=== PATIENT | male | born 1945 | race Hispanic/Latino ===

== ENCOUNTER → 2017-05-08 | Outpatient (CLI) | payer MEDICARE ==
[~2017-05-08] MED LIST: ALBUMIN (HUMAN) 25% 200 ML IV SCH; FURO40TA5 PO; FURO80TA3 PO; LEVO150T6 PO; METO2.5T2 PO; PROP10TA10 PO; SPIR25TA4 PO; TEMA15CA PO
[2017-05-08 10:22] LABS: INR 1.05 (0.85-1.15); PARTIAL THROMBOPLASTIN TIME 29.7 SEC (26.3-35.5)
== END | disposition home or self-care (01) ==
LOC: OIH 09:11
PROVIDERS: ATTEND Internal Medicine
DX: K74.69 Other cirrhosis of liver (principal); D73.2 Chronic congestive splenomegaly; J98.11 Atelectasis; R18.8 Other ascites
CPT/HCPCS: 36415; 49083; 74150; 85610; 85730; P9046

== ENCOUNTER → 2017-05-23 | Outpatient (CLI) | payer MEDICARE ==
[2017-05-23 10:06] LABS: INR 1.06 (0.85-1.15); PARTIAL THROMBOPLASTIN TIME 30.2 SEC (26.3-35.5); PROTHROMBIN TIME 11.1 SEC (9.6-11.6)
== END | disposition home or self-care (01) ==
LOC: RAH 09:23
PROVIDERS: ATTEND Internal Medicine
DX: R18.8 Other ascites (principal); Z79.01 Long term (current) use of anticoagulants
CPT/HCPCS: 36415; 49083; 85610; 85730; P9046

== ENCOUNTER → 2017-06-10 | Outpatient (CLI) | payer MEDICARE ==
[~2017-06-10] MED LIST changes: +ALBUMIN (HUMAN) 25% 200 ML IV ONE; -ALBUMIN (HUMAN) 25% 200 ML IV SCH
[2017-06-10 11:21] LABS: INR 1.08 (0.85-1.15); PARTIAL THROMBOPLASTIN TIME 29.7 SEC (26.3-35.5); PROTHROMBIN TIME 11.3 SEC (9.6-11.6)
== END | disposition home or self-care (01) ==
LOC: RAH 11:06
PROVIDERS: ATTEND Internal Medicine
DX: R18.8 Other ascites (principal); K74.60 Unspecified cirrhosis of liver
CPT/HCPCS: 36415; 49083; 85610; 85730; P9046

== ENCOUNTER → 2017-06-27 | Outpatient (CLI) | payer MEDICARE ==
[~2017-06-27] MED LIST changes: -ALBUMIN (HUMAN) 25% 200 ML IV ONE; +ALBUMIN (HUMAN) 25% 200 ML IV SCH
[2017-06-27 08:31] LABS: INR 1.08 (0.85-1.15); PARTIAL THROMBOPLASTIN TIME 30.5 SEC (26.3-35.5); PROTHROMBIN TIME 11.3 SEC (9.6-11.6)
== END | disposition home or self-care (01) ==
LOC: RAH 07:18
PROVIDERS: ATTEND Internal Medicine
DX: R18.8 Other ascites (principal); K74.60 Unspecified cirrhosis of liver
CPT/HCPCS: 36415; 49083; 85610; 85730; P9046

== ENCOUNTER → 2017-07-16 | Outpatient (CLI) | payer MEDICARE ==
[~2017-07-16] MED LIST changes: +ALBUMIN (HUMAN) 25% 200 ML IV ONE; -ALBUMIN (HUMAN) 25% 200 ML IV SCH
[2017-07-16 15:53] LABS: INR 1.1 (0.85-1.15); PARTIAL THROMBOPLASTIN TIME 29.4 SEC (26.3-35.5); PROTHROMBIN TIME 11.5 SEC (9.6-11.6)
[2017-07-16 21:28] LABS: APPEARANCE BODY FLUID SLIGHTLY CLOUDY (CLEAR); BODY FLUID WBC 75 /cu. mm.; COLOR,BODY FLUID YELLOW (LT YELLOW); SPECIMENTYPE,BODY FLUID ASCITES; TOTAL VOLUME,BODY FLUID 100 mL
[2017-07-16 21:29] LABS: BODY FLUID RBC 691 /cu. mm.
[2017-07-16 21:39] LABS: BF EOSINOPHIL 1 %; BF LYMPHOCYTE 71 %; BF MONOCYTE 10 %
== END | disposition home or self-care (01) ==
LOC: RAH 14:55
PROVIDERS: ATTEND Internal Medicine
DX: K74.69 Other cirrhosis of liver (principal); R18.8 Other ascites
CPT/HCPCS: 36415; 49083; 85610; 85730; 87071; 87205; 89051; P9046

== ENCOUNTER → 2017-07-23 | Outpatient (CLI) | payer MEDICARE ==
[~2017-07-23] MED LIST changes: -ALBUMIN (HUMAN) 25% 200 ML IV ONE
[2017-07-23 11:45] LABS: INR 1.07 (0.85-1.15); PARTIAL THROMBOPLASTIN TIME 29.4 SEC (26.3-35.5); PROTHROMBIN TIME 11.2 SEC (9.6-11.6)
== END | disposition home or self-care (01) ==
LOC: RAH 10:00
PROVIDERS: ATTEND Internal Medicine
DX: K76.89 Other specified diseases of liver (principal); R18.8 Other ascites
CPT/HCPCS: 36415; 85610; 85730

== ENCOUNTER → 2017-07-25 | Outpatient (CLI) | payer MEDICARE ==
[~2017-07-25] MED LIST changes: +IOPAMIDOL-370 75 ML VIAL IV ONE
[2017-07-25 10:10] LABS: EOSINOPHILS % (AUTO) 5.9 % (0.0-8.0); LYMPHOCYTES % (AUTO) 12.3 % (21.0-51.0); MEAN CORPUSCULAR HEMOGLOBIN 27.1 pg (27.0-33.0); MEAN CORPUSCULAR HGB CONC 33.1 g/dL (32.0-36.0); MEAN CORPUSCULAR VOLUME 81.8 fL (79-99); MONOCYTES % (AUTO) 10.8 % (3.0-13.0); NUCLEATED RED BLOOD CELLS 0.2 % (0.0-0.19); PLATELET COUNT (AUTO) 76 K/uL (130-400); RED BLOOD CELL COUNT(AUTO) 4.52 MIL/uL (4.50-6.20); RED CELL DISTRIBUTION WIDTH 16.1 % (11.0-15.5); WHITE BLOOD COUNT (AUTO) 3.3 K/uL (4.8-10.8)
[2017-07-25 10:25] LABS: ALBUMIN 2.3 g/dL (3.5-5.0); CREATININE 1.5 mg/dL (0.5-1.5); POTASSIUM 4.6 mmol/L (3.5-5.1); TOTAL PROTEIN, SERUM 6.1 g/dL (6.0-8.3)
== END | disposition home or self-care (01) ==
LOC: RAH 09:36
PROVIDERS: ATTEND Internal Medicine
DX: K74.69 Other cirrhosis of liver (principal); K40.90 Unilateral inguinal hernia, without obstruction or gangrene, not specified as recurrent; I70.90 Unspecified atherosclerosis; J98.11 Atelectasis; M47.895 Other spondylosis, thoracolumbar region; R18.8 Other ascites
CPT/HCPCS: 36415; 74178; 80053; 85025; Q9967

== ENCOUNTER 2017-07-31 05:11 | Observation (INO) | payer MEDICARE ==
[~2017-07-31] VITALS: Ht 180.3 cm; Wt 87.0 kg
[2017-07-31] VITALS (30 sets, daily range): BP systolic 81–119; BP diastolic 51–78
[~2017-07-31 05:11] MED LIST changes: -FURO80TA3 PO; -IOPAMIDOL-370 75 ML VIAL IV ONE; -PROP10TA10 PO; -SPIR25TA4 PO; -TEMA15CA PO
[2017-07-31 06:21] LABS: HEMATOCRIT 36.2 % (42-54); LYMPHOCYTES % (AUTO) 10.8 % (21.0-51.0); MEAN CORPUSCULAR HEMOGLOBIN 27.1 pg (27.0-33.0); MEAN CORPUSCULAR HGB CONC 33.3 g/dL (32.0-36.0); MEAN CORPUSCULAR VOLUME 81.4 fL (79-99); MONOCYTES % (AUTO) 10.7 % (3.0-13.0); NEUTROPHILS % (AUTO) 70.5 % (40.0-77.0); PLATELET COUNT (AUTO) 73 K/uL (130-400); RED BLOOD CELL COUNT(AUTO) 4.44 MIL/uL (4.50-6.20); RED CELL DISTRIBUTION WIDTH 16.5 % (11.0-15.5); WHITE BLOOD COUNT (AUTO) 3.2 K/uL (4.8-10.8)
[2017-07-31] MEDS ORDERED: LACTATED RINGERS 1000ML 1,000 ML IV ONE (06:48)
[2017-07-31] MEDS ORDERED: PROP10TA10 PO (07:24)
[2017-07-31] MEDS ORDERED: SPIR25TA6 PO (07:24)
[2017-07-31] MEDS ORDERED: TEMA15CA PO (07:24)
[2017-07-31] MEDS ORDERED: FURO80TA3 PO (07:24)
[2017-07-31] MEDS ORDERED: GLYCOPYRROLATE 0.2 MG/ML 5 ML VIAL ONE ×2 (07:38→12:55)
[2017-07-31] MEDS ORDERED: LIDOCAINE PF 2% 5ML ABBOJECT ONE (07:38)
[2017-07-31] MEDS ORDERED: DEXAMETHASONE SOD PHOSPHATE 10MG/ML 1ML VIAL ONE (07:38)
[2017-07-31] MEDS ORDERED: PROPOFOL 10 MG/ML 20ML VIAL IV ONE (07:39)
[2017-07-31] MEDS ORDERED: MIDAZOLAM HCL 1 MG/ML 2ML VIAL ONE (07:39)
[2017-07-31] MEDS ORDERED: ISOVUE-300 100 ML VIAL IV ONE ×2 (07:40→08:34)
[2017-07-31] MEDS ORDERED: LIDOCAINE HCL 1% MDV 50ML VIAL ONE (07:40)
[2017-07-31] MEDS ORDERED: FENTANYL CITRATE PF 50 MCG/1 ML 5ML AMP IV ONE (07:42)
[2017-07-31] MEDS ORDERED: SODIUM CHLORIDE 0.9% 1000ML 1,000 ML IV ONE (15:06)
[2017-07-31] MEDS ORDERED: SODIUM CHLORIDE 0.9% 1000ML 1,000 ML IV SCH (20:15)
[2017-07-31] MEDS ORDERED: TEMAZEPAM 15 MG CAPSULE PO SCH (21:00)
[2017-07-31] MEDS: PROPRANOLOL HCL 10 MG TAB PO SCH (21:00)
[2017-08-01 03:00] VITALS: BP 92/63
[2017-08-01 08:00] VITALS: BP 107/64
[2017-08-01] MEDS ORDERED: LEVOTHYROXINE 150 MCG TABLET PO SCH (09:00)
[2017-08-01] MEDS: PROPRANOLOL HCL 10 MG TAB PO SCH (09:06)
[2017-08-01 11:00] VITALS: BP 102/67
== END 2017-08-01 14:06 | disposition home or self-care (01) ==
LOC: DAHIP 05:11 → INTOOBSV 05:11 → EDSTATUS 11:30 → 3CH 13:46
PROVIDERS: ADMIT Internal Medicine; ATTEND Internal Medicine
DX: K74.60 Unspecified cirrhosis of liver (principal); K76.6 Portal hypertension; R18.8 Other ascites; I12.9 Hypertensive chronic kidney disease with stage 1 through stage 4 chronic kidney disease, or unspecified chronic kidney disease; N18.3 Chronic kidney disease, stage 3 (moderate); B18.2 Chronic viral hepatitis C; D64.89 Other specified anemias; E11.22 Type 2 diabetes mellitus with diabetic chronic kidney disease; E78.2 Mixed hyperlipidemia; G47.09 Other insomnia
CPT/HCPCS: 36415; 37182; 49083 ×2; 85025; C1769 ×2; C1894 ×2; G0378 ×34; J1100; J1644 ×2; J2001; J2250; J2704; J3010; J3490 ×2; J7030; J7120; Q9967 ×2

== ENCOUNTER 2017-08-04 07:50 | Day surgery (SDC) | payer MEDICARE ==
[2017-08-01 12:00] VITALS: BP 102/67
[2017-08-04] VITALS (8 sets, daily range): BP systolic 99–125; BP diastolic 59–70
[~2017-08-04] VITALS: Ht 180.3 cm; Wt 87.0 kg
[~2017-08-04 07:50] MED LIST changes: -FURO40TA5 PO; +FURO80TA3 PO; -METO2.5T2 PO; +PROP10TA10 PO; +SPIR25TA4 PO; +TEMA15CA PO
[2017-08-04] MEDS ORDERED: ISOVUE-300 100 ML VIAL IV ONE (09:17)
[2017-08-04] MEDS ORDERED: LIDOCAINE HCL 1% MDV 50ML VIAL ONE (09:18)
[2017-08-04] MEDS ORDERED: MEPERIDINE-PF 25 MG/ML SYG ONE (10:05)
== END 2017-08-04 13:45 | disposition home or self-care (01) ==
LOC: DAH 07:50
PROVIDERS: ATTEND Internal Medicine
DX: K74.69 Other cirrhosis of liver (principal); R18.8 Other ascites; B19.20 Unspecified viral hepatitis C without hepatic coma; E03.8 Other specified hypothyroidism; M10.9 Gout, unspecified; I12.9 Hypertensive chronic kidney disease with stage 1 through stage 4 chronic kidney disease, or unspecified chronic kidney disease; N18.3 Chronic kidney disease, stage 3 (moderate); E88.09 Other disorders of plasma-protein metabolism, not elsewhere classified; D64.89 Other specified anemias
CPT/HCPCS: 10030; 49418; A4606; A7048; J1644; J2175; J3490; Q9967

== ENCOUNTER 2017-09-15 18:46 | Inpatient (IN) | payer MEDICARE ==
[~2017-09-15] VITALS: Ht 180.3 cm; Wt 44.3 kg
[~2017-09-15 18:46] MED LIST changes: -SPIR25TA4 PO; +SPIR25TA6 PO
[2017-09-15] MEDS ORDERED: SODIUM CHLORIDE 0.9% 1000ML 1,000 ML IV ONE (19:23)
[2017-09-15] MEDS ORDERED: CEFTRIAXONE SODIUM 2 GM VIAL ONE (19:24)
[2017-09-15 19:25] LABS: BASOPHILS % (AUTO) 0.2 % (0.0-5.0); EOSINOPHILS % (AUTO) 0.1 % (0.0-8.0); LYMPHOCYTES % (AUTO) 2.4 % (21.0-51.0); MEAN CORPUSCULAR HEMOGLOBIN 26.3 pg (27.0-33.0); MEAN CORPUSCULAR HGB CONC 32.9 g/dL (32.0-36.0); MEAN CORPUSCULAR VOLUME 80.1 fL (79-99); MONOCYTES % (AUTO) 7.2 % (3.0-13.0); NEUTROPHILS % (AUTO) 90.1 % (40.0-77.0); PLATELET COUNT (AUTO) 186 K/uL (130-400); RED BLOOD CELL COUNT(AUTO) 3.25 MIL/uL (4.50-6.20); RED CELL DISTRIBUTION WIDTH 16.5 % (11.0-15.5)
[2017-09-15] MEDS ORDERED: ALBUMIN (HUMAN) 25% 100 ML IV ONE (19:25)
[2017-09-15 19:36] LABS: INR 1.27 (0.85-1.15); PARTIAL THROMBOPLASTIN TIME 34.3 SEC (26.3-35.5); PROTHROMBIN TIME 13.3 SEC (9.6-11.6)
[2017-09-15 19:47] LABS: ALANINE AMINOTRANSFERASE 24 U/L (12-78); ALBUMIN 1.1 g/dL (3.5-5.0); ALCOHOL, BLOOD < 3 mg/dL (0-10); ASPARTATE AMINOTRANSFERASE 29 U/L (10-37); BILIRUBIN,TOTAL 0.6 mg/dL (0.2-1.0); CARBON DIOXIDE 22 mmol/L (21-32); CHLORIDE 99 mmol/L (101-111); CREATINE KINASE MB < 0.5 ng/mL (0.5-3.6); CREATINE KINASE, TOTAL 10 U/L (21-232); CREATININE 3.4 mg/dL (0.5-1.5); GLOMERULAR FILTR. RATE CALC 19 mL/min (>60); LIPASE 337 U/L (114-286); POTASSIUM 5.7 mmol/L (3.5-5.1); SODIUM SERUM 129 mmol/L (136-145); TOTAL PROTEIN, SERUM 4.8 g/dL (6.0-8.3)
[2017-09-15 19:49] LABS: UREA NITROGEN, BLOOD 121 mg/dL (7-18)
[2017-09-15 19:52] LABS: GLUCOSE,RANDOM 158 mg/dL (70-105)
[2017-09-15] MEDS ORDERED: SODIUM CHLORIDE 0.9% 100 ML IV ONE (20:30)
[2017-09-15] MEDS ORDERED: OCTREOTIDE ACETATE 1,000 MCG in SODIUM CHLORIDE 0.9% 95 ML IV SCH (20:45)
[2017-09-15] MEDS ORDERED: PANTOPRAZOLE SODIUM 80 MG in NS 100ML IVP SCH (20:45)
[2017-09-15] MEDS ORDERED: SODIUM CHLORIDE 0.9% IV ONE (21:00)
[2017-09-15] MEDS ORDERED: OCTREOTIDE ACETATE IV ONE (21:00)
[2017-09-15 23:30] VITALS: BP 96/54
[2017-09-16] VITALS (22 sets, daily range): BP systolic 79–152; BP diastolic 42–66
[2017-09-16 04:16] LABS: HEMATOCRIT 20.9 % (42-54)
[2017-09-16] MEDS ORDERED: SODIUM CHLORIDE 0.9% 1000ML 1,000 ML IV SCH (05:00)
[2017-09-16] MEDS ORDERED: CEFTRIAXONE 1GM/D5W 50ML 50 ML IV SCH (07:15)
[2017-09-16] MEDS ORDERED: SODIUM CHLORIDE 0.9% 500ML 500 ML IV ONE (07:28)
[2017-09-16] MEDS ORDERED: CEFTRIAXONE SODIUM 1 GM IVP SCH (07:45)
[2017-09-16] MEDS ORDERED: PROPOFOL 10 MG/ML 20ML VIAL IV ONE (12:38)
[2017-09-16] MEDS ORDERED: DEXTROSE 50%-WATER 50 ML DISP.SYRIN IV ONE (13:26)
[2017-09-16] MEDS ORDERED: INSULIN HUMULIN R 100 UNIT/ML 3ML ONE (13:27)
[2017-09-16] MEDS ORDERED: CALCIUM GLUCONATE 1 GM in SODIUM CHLORIDE 0.9% 50 ML IV SCH (13:30)
[2017-09-16 14:11] LABS: HEMATOCRIT 25.4 % (42-54)
[2017-09-16] MEDS ORDERED: DEXTROSE 50%-WATER 25 GM/50 ML VIAL IV ONE (14:30)
[2017-09-16] MEDS ORDERED: INSULIN HUMULIN R 100 UNIT/ML 3ML IV ONE (14:30)
[2017-09-16] MEDS: SODIUM CHLORIDE 0.9% 1000ML 1,000 ML IV SCH (18:30)
[2017-09-16 18:56] LABS: HEMATOCRIT 28.3 % (42-54)
[2017-09-16 23:13] LABS: APPEARANCE,URINE Clear (CLEAR); BILIRUBIN,URINE Negative (NEGATIVE); COLOR,URINE Yellow (YELLOW); GLUCOSE, URINE (UA) Negative (NEGATIVE); KETONES,URINE Negative (NEGATIVE); LEUKOCYTE ESTERASE ,URINE Small (NEGATIVE); NITRATE,URINE Negative (NEGATIVE); OCCULT BLOOD,URINE Small (NEGATIVE); PROTEIN,URINE Negative (NEGATIVE); UROBILINOGEN,URINE 0.2 mg/dL (0.2-1.0)
[2017-09-16 23:21] LABS: AMPHET/METH SCREEN,URINE NEGATIVE (NEGATIVE); BARBITURATE SCREEN, URINE NEGATIVE (NEGATIVE); BENZODIAZEPINES SCREEN,URINE NEGATIVE (NEGATIVE); CANNABINOID SCREEN,URINE NEGATIVE (NEGATIVE); COCAINE SCREEN,URINE NEGATIVE (NEGATIVE); OPIATE SCREEN,URINE NEGATIVE (NEGATIVE); PHENCYCLIDINE SCREEN,URINE NEGATIVE (NEGATIVE)
[2017-09-16 23:55] LABS: BACTERIA,URINE Rare /HPF (None Seen)
[2017-09-16 23:56] LABS: SQUAMOUS EPITHELIAL CELL,UR 0-2 /HPF (0-2)
[2017-09-17] VITALS (31 sets, daily range): BP systolic 98–146; BP diastolic 53–74
[2017-09-17 03:50] LABS: HEMATOCRIT 30.3 % (42-54); MEAN CORPUSCULAR HEMOGLOBIN 28.2 pg (27.0-33.0); MEAN CORPUSCULAR HGB CONC 34.5 g/dL (32.0-36.0); MEAN CORPUSCULAR VOLUME 81.8 fL (79-99); PLATELET COUNT (AUTO) 73 K/uL (130-400); RED BLOOD CELL COUNT(AUTO) 3.71 MIL/uL (4.50-6.20); RED CELL DISTRIBUTION WIDTH 16.6 % (11.0-15.5); WHITE BLOOD COUNT (AUTO) 6.9 K/uL (4.8-10.8)
[2017-09-17] MEDS: SODIUM CHLORIDE 0.9% 1000ML 1,000 ML IV SCH (04:09)
[2017-09-17 04:23] LABS: ALBUMIN 1.7 g/dL (3.5-5.0); BILIRUBIN,TOTAL 0.8 mg/dL (0.2-1.0); CREATININE 2.9 mg/dL (0.5-1.5); POTASSIUM 4.9 mmol/L (3.5-5.1); TOTAL PROTEIN, SERUM 5.5 g/dL (6.0-8.3)
[2017-09-17] MEDS: PANTOPRAZOLE 40 MG/VIAL IVP SCH (09:59)
[2017-09-17] MEDS ORDERED: LIDOCAINE HCL 2% 20ML ONE (10:57)
[2017-09-17] MEDS ORDERED: PROPOFOL 10 MG/ML 20ML VIAL IV ONE ×2 (10:57)
[2017-09-17] MEDS: CEFTRIAXONE SODIUM 1 GM IVP SCH (12:10)
[2017-09-17] MEDS: OCTREOTIDE ACETATE 1,000 MCG in SODIUM CHLORIDE 0.9% 95 ML IV SCH (14:43)
[2017-09-18] VITALS (14 sets, daily range): BP systolic 113–133; BP diastolic 54–75
[2017-09-18 03:58] LABS: HEMATOCRIT 28.5 % (42-54); MEAN CORPUSCULAR HEMOGLOBIN 29.3 pg (27.0-33.0); MEAN CORPUSCULAR HGB CONC 35.8 g/dL (32.0-36.0); NUCLEATED RED BLOOD CELLS 0.1 % (0.0-0.19); PLATELET COUNT (AUTO) 72 K/uL (130-400); RED BLOOD CELL COUNT(AUTO) 3.48 MIL/uL (4.50-6.20); RED CELL DISTRIBUTION WIDTH 17.1 % (11.0-15.5); WHITE BLOOD COUNT (AUTO) 6.1 K/uL (4.8-10.8)
[2017-09-18 04:09] LABS: CREATININE 2.2 mg/dL (0.5-1.5); POTASSIUM 4.4 mmol/L (3.5-5.1)
[2017-09-18] MEDS: SODIUM CHLORIDE 0.9% 1000ML 1,000 ML IV SCH ×2 (05:07→10:30)
[2017-09-18] MEDS ORDERED: HALOPERIDOL LACTATE 5 MG/ML VIAL IV PRN (06:45)
[2017-09-18] MEDS ORDERED: CALCIUM GLUCONATE 1 GM/10 ML VIAL IV SCH (08:00)
[2017-09-18] MEDS ORDERED: CEFTRIAXONE 1GM/D5W 50ML 50 ML IV SCH (09:00)
[2017-09-18] MEDS: PANTOPRAZOLE 40 MG/VIAL IVP SCH (09:59)
[2017-09-18] MEDS: CEFTRIAXONE SODIUM 1 GM IVP SCH (13:00)
[2017-09-18] MEDS: OCTREOTIDE ACETATE 1,000 MCG in SODIUM CHLORIDE 0.9% 95 ML IV SCH (14:08)
[2017-09-18] MEDS: DIPHENHYDRAMINE HCL 25 MG CAPSULE PO SCH (21:00)
[2017-09-19] VITALS (7 sets, daily range): BP systolic 117–127; BP diastolic 62–73
[2017-09-19] MEDS: SODIUM CHLORIDE 0.9% 1000ML 1,000 ML IV SCH ×2 (03:32→11:51)
[2017-09-19 04:41] LABS: HEMATOCRIT 30.2 % (42-54); MEAN CORPUSCULAR HEMOGLOBIN 28.3 pg (27.0-33.0); MEAN CORPUSCULAR HGB CONC 34.1 g/dL (32.0-36.0); PLATELET COUNT (AUTO) 80 K/uL (130-400); RED BLOOD CELL COUNT(AUTO) 3.63 MIL/uL (4.50-6.20); RED CELL DISTRIBUTION WIDTH 16.7 % (11.0-15.5); WHITE BLOOD COUNT (AUTO) 6.6 K/uL (4.8-10.8)
[2017-09-19 05:15] LABS: POTASSIUM 4.5 mmol/L (3.5-5.1)
[2017-09-19] MEDS ORDERED: LORAZEPAM 2 MG/ML 1 ML VIAL IVP PRN (06:45)
[2017-09-19] MEDS: PANTOPRAZOLE 40 MG/VIAL IVP SCH (09:50)
[2017-09-19] MEDS: CEFTRIAXONE SODIUM 1 GM IVP SCH (11:51)
[2017-09-19] MEDS: DIPHENHYDRAMINE HCL 25 MG CAPSULE PO SCH (20:57)
[2017-09-20 03:21] VITALS: BP 113/62
[2017-09-20 04:29] LABS: HEMATOCRIT 25.7 % (42-54); MEAN CORPUSCULAR HEMOGLOBIN 29.3 pg (27.0-33.0); MEAN CORPUSCULAR HGB CONC 35.1 g/dL (32.0-36.0); MEAN CORPUSCULAR VOLUME 83.5 fL (79-99); PLATELET COUNT (AUTO) 71 K/uL (130-400); RED BLOOD CELL COUNT(AUTO) 3.08 MIL/uL (4.50-6.20); RED CELL DISTRIBUTION WIDTH 16.9 % (11.0-15.5); WHITE BLOOD COUNT (AUTO) 4.4 K/uL (4.8-10.8)
[2017-09-20] MEDS: SODIUM CHLORIDE 0.9% 1000ML 1,000 ML IV SCH ×3 (04:42→20:34)
[2017-09-20 04:44] LABS: CREATININE 1.4 mg/dL (0.5-1.5)
[2017-09-20] MEDS: OCTREOTIDE ACETATE 1,000 MCG in SODIUM CHLORIDE 0.9% 95 ML IV SCH (06:47)
[2017-09-20 08:00] VITALS: BP 111/57
[2017-09-20] MEDS: PANTOPRAZOLE 40 MG/VIAL IVP SCH (09:47)
[2017-09-20] MEDS: CEFTRIAXONE SODIUM 1 GM IVP SCH (09:47)
[2017-09-20 12:00] VITALS: BP 111/60
[2017-09-20 16:00] VITALS: BP 137/80
[2017-09-20 19:21] VITALS: BP 112/66
[2017-09-20] MEDS: DIPHENHYDRAMINE HCL 25 MG CAPSULE PO SCH (20:34)
[2017-09-20] MEDS: PROPRANOLOL HCL 10 MG TAB PO SCH (20:34)
[2017-09-20 23:29] VITALS: BP 104/55
[2017-09-21 03:32] VITALS: BP 101/54
[2017-09-21] MEDS: SODIUM CHLORIDE 0.9% 1000ML 1,000 ML IV SCH ×2 (05:10→18:30)
[2017-09-21 08:00] VITALS: BP 99/52
[2017-09-21] MEDS: LEVOTHYROXINE 150 MCG TABLET PO SCH (09:41)
[2017-09-21] MEDS: PROPRANOLOL HCL 10 MG TAB PO SCH ×2 (09:42→20:29)
[2017-09-21] MEDS: FUROSEMIDE 80 MG TABLET PO SCH (09:42)
[2017-09-21] MEDS: PANTOPRAZOLE 40 MG/VIAL IVP SCH (09:42)
[2017-09-21 12:00] VITALS: BP 99/56
[2017-09-21] MEDS: CEFTRIAXONE SODIUM 1 GM IVP SCH (12:23)
[2017-09-21 16:00] VITALS: BP 101/59
[2017-09-21 19:59] VITALS: BP 103/59
[2017-09-21] MEDS: DIPHENHYDRAMINE HCL 25 MG CAPSULE PO SCH (20:29)
[2017-09-21 23:22] VITALS: BP 102/54
[2017-09-22 03:36] VITALS: BP 102/54
[2017-09-22 07:14] LABS: BASOPHILS % (AUTO) 0.7 % (0.0-5.0); EOSINOPHILS % (AUTO) 2.7 % (0.0-8.0); HEMATOCRIT 28.5 % (42-54); LYMPHOCYTES % (AUTO) 4.5 % (21.0-51.0); MEAN CORPUSCULAR HEMOGLOBIN 28.5 pg (27.0-33.0); MEAN CORPUSCULAR VOLUME 83.8 fL (79-99); MONOCYTES % (AUTO) 6.2 % (3.0-13.0); NEUTROPHILS % (AUTO) 85.9 % (40.0-77.0); PLATELET COUNT (AUTO) 72 K/uL (130-400); RED BLOOD CELL COUNT(AUTO) 3.39 MIL/uL (4.50-6.20); RED CELL DISTRIBUTION WIDTH 17.1 % (11.0-15.5); WHITE BLOOD COUNT (AUTO) 5.9 K/uL (4.8-10.8)
[2017-09-22 07:27] LABS: ALBUMIN 1.6 g/dL (3.5-5.0); BILIRUBIN,TOTAL 0.6 mg/dL (0.2-1.0); CREATININE 1.5 mg/dL (0.5-1.5); TOTAL PROTEIN, SERUM 5.5 g/dL (6.0-8.3)
[2017-09-22] MEDS: SODIUM CHLORIDE 0.9% 1000ML 1,000 ML IV SCH (07:50)
[2017-09-22 08:00] VITALS: BP 117/71
[2017-09-22] MEDS: PANTOPRAZOLE 40 MG/VIAL IVP SCH (08:14)
[2017-09-22] MEDS: LEVOTHYROXINE 150 MCG TABLET PO SCH (08:15)
[2017-09-22] MEDS: PROPRANOLOL HCL 10 MG TAB PO SCH ×2 (08:15→21:00)
[2017-09-22] MEDS: FUROSEMIDE 80 MG TABLET PO SCH (08:16)
[2017-09-22] MEDS ORDERED: SPIRONOLACTONE 25 MG TAB PO SCH (09:00)
[2017-09-22 13:09] VITALS: BP 98/56
[2017-09-22 14:29] LABS: INR 1.28 (0.85-1.15); PARTIAL THROMBOPLASTIN TIME 33.7 SEC (26.3-35.5); PROTHROMBIN TIME 13.4 SEC (9.6-11.6)
[2017-09-22 16:00] VITALS: BP 84/52
[2017-09-22] MEDS: CEFTRIAXONE SODIUM 1 GM IVP SCH (17:44)
[2017-09-22] MEDS: ALBUMIN (HUMAN) 25% 100 ML IV SCH ×2 (18:19→18:38)
[2017-09-22 19:15] VITALS: BP 100/56
[2017-09-22] MEDS: DIPHENHYDRAMINE HCL 25 MG CAPSULE PO SCH (21:14)
[2017-09-23] VITALS (12 sets, daily range): BP systolic 92–119; BP diastolic 51–85
[2017-09-23] MEDS ORDERED: PANTOPRAZOLE SODIUM 40 MG TABLET.DR PO SCH (07:51)
[2017-09-23] MEDS: FUROSEMIDE 80 MG TABLET PO SCH (08:24)
[2017-09-23] MEDS: PROPRANOLOL HCL 10 MG TAB PO SCH (08:24)
[2017-09-23] MEDS: CEFTRIAXONE SODIUM 1 GM IVP SCH (08:24)
[2017-09-23] MEDS ORDERED: LIDOCAINE HCL 1% MDV 50ML VIAL ONE (08:40)
[2017-09-23] MEDS: LEVOTHYROXINE 150 MCG TABLET PO SCH (09:00)
[2017-09-23] MEDS: SODIUM CHLORIDE 0.9% 1000ML 1,000 ML IV SCH (10:30)
== END 2017-09-23 18:33 | disposition home or self-care (01) | DRG 432 ==
LOC: EDH 18:46 → EDHIP 21:42 → 2BH 23:28 → 3DH 09-18 17:26
PROVIDERS: ADMIT Internal Medicine; ATTEND Internal Medicine
PROC: 06L38CZ Occlusion of Esophageal Vein with Extraluminal Device, Via Natural or Artificial Opening Endoscopic (ICD-10-PCS; 2017-09-17)
PROC: 0WPGX3Z Removal of Infusion Device from Peritoneal Cavity, External Approach (ICD-10-PCS; principal; 2017-09-23)
DX: K74.60 Unspecified cirrhosis of liver (principal); I85.01 Esophageal varices with bleeding; N17.9 Acute kidney failure, unspecified; D61.818 Other pancytopenia; K76.6 Portal hypertension; E87.1 Hypo-osmolality and hyponatremia; R18.8 Other ascites; M10.9 Gout, unspecified; I10 Essential (primary) hypertension; E03.9 Hypothyroidism, unspecified
CPT/HCPCS: 36415; 36430; 49422; 71045; 80048; 80053; 80305; 81001; 82550; 82553; 82948; 83690; 84132; 84484; 85014; 85018; 85025; 85027; 85610; 85730; 86850; 86900; 86901; 86922; 86927; 87040; 93005; 97039; 99291; A4218; C9113; G0480; J0610; J0696; J1815; J2354; J2704; J3490; J7030; J7040; J7070; P9016; P9017; P9046; Q0163

== ENCOUNTER → 2018-03-27 | Outpatient (CLI) | payer MEDICARE, OTHER ==
[~2018-03-27] MED LIST changes: -TEMA15CA PO
== END | disposition home or self-care (01) ==
LOC: RAH 08:44
PROVIDERS: ATTEND Internal Medicine
DX: I73.9 Peripheral vascular disease, unspecified (principal); R94.30 Abnormal result of cardiovascular function study, unspecified
CPT/HCPCS: 93922